=== PATIENT | female | born 1935 | race Caucasian/White ===

== ENCOUNTER 2022-12-04 18:44 | Inpatient (IN) | payer OTHER, MEDICAID ==
[~2022-12-04] VITALS: Ht 154.9 cm; Wt 56.7 kg
[2022-12-04 18:44] VITALS: BP 167/85
--- NOTE | 2022-12-04 18:50 | NUR ---
PATIENT BIBA TO BED 7.
--- NOTE | 2022-12-04 19:00 | NUR ---
PT RECEIVED, CARE ASSUMED. PT BIB FOR EVALUATION OF FEVER. CONNECTED TO TELE MONITOR. AWAITING TO BE SEEN BY
[2022-12-04 19:27] LABS: BASOPHILS % (AUTO) 0.1 % (0.0-2.0); EOSINOPHILS # (AUTO) 0.1 K/uL (0-0.4); EOSINOPHILS % (AUTO) 0.7 % (0.0-4.0); HEMATOCRIT 35.1 % (36-48); HEMOGLOBIN 11.9 g/dL (12.0-16.0); MEAN CORPUSCULAR HEMOGLOBIN 32 pg (27-31); MEAN CORPUSCULAR HGB CONC 34 g/dL (33-37); MEAN CORPUSCULAR VOLUME 95.9 fL (80-94); MONOCYTES # (AUTO) 0.7 K/uL (0.8-1.0); MONOCYTES % (AUTO) 8.2 % (1.7-9.3); PLATELET COUNT (AUTO) 240 K/uL (140-450); RED BLOOD CELL COUNT(AUTO) 3.66 MIL/uL (4.20-5.40); RED CELL DISTRIBUTION WIDTH 13.2 % (11.6-13.7); WHITE BLOOD COUNT (AUTO) 8.7 K/uL (4.8-10.8)
--- NOTE | 2022-12-04 19:35 | NUR ---
XRRAY AT BEDSIDE
--- NOTE | 2022-12-04 19:36 | NUR ---
PT WALKED TO BATHROOM WITH ASSIST. GAIT UNSTEADY. LEFT SIDED WEAKNESS. URINE OBTAINED AND SENT TO LAB
[2022-12-04 19:39] LABS: APPEARANCE,URINE CLEAR (CLEAR); BILIRUBIN,URINE NEGATIVE (NEGATIVE); BLOOD, URINE 1+ (NEGATIVE); COLOR,URINE YELLOW (YELLOW); LEUKOCYTE ESTERASE ,URINE NEGATIVE (NEGATIVE); NITRITE, URINE NEGATIVE (NEGATIVE); UGLUCOSE NEGATIVE (NEGATIVE)
--- NOTE | 2022-12-04 19:41 | NUR ---
COVID AND FLU SWAB COLLECTED AND SENT TO LAB
[2022-12-04 19:56] LABS: ALBUMIN 3.8 g/dL (3.4-5.0); ANION GAP 10.8 (8-16); ASPARTATE AMINOTRANSFERASE 36 U/L (15-37); CARBON DIOXIDE 27.8 mmol/L (21-32); CHLORIDE 98 mmol/L (98-107); GLUCOSE 156 mg/dL (74-106); POTASSIUM 3.6 mmol/L (3.5-5.1); SODIUM SERUM 133 mmol/L (136-145); THYROID STIMULATING HORMONE 0.96 uIU/mL (0.34-3.74); TOTAL BILIRUBIN 0.9 mg/dL (0.0-1.0); UREA NITROGEN, BLOOD 27 mg/dL (7-18)
--- NOTE | 2022-12-04 20:00 | NUR ---
86 Y/O F PRESENTS WITH A FEVER AND L SIDED WEAKNESS. PT GAIT IS UNSTEADY, SKIN INTACT, A&OX4. PT IS WARM TO TOUCH. PMH-UNKNOWN NKA
[2022-12-04 20:08] LABS: OTHER CASTS, URINE None Seen /LPF (None Seen); WBC,URINE 0-5 /HPF (0-5)
--- NOTE | 2022-12-04 20:55 | NUR ---
DR. NIÑO AT BEDSIDE
--- NOTE | 2022-12-04 21:57 | NUR ---
BELONGINGS LIST DONE.
--- NOTE | 2022-12-04 21:58 | NUR ---
OMARI NUNEZ USED TO COMMUNICATE WITH PT.
--- NOTE | 2022-12-04 21:58 | NUR ---
PENDING ADMISSION ORDERS FOR TELE. PT IS AWARE AND UNDERSTANDS
[2022-12-04] MEDS ORDERED: MELATONIN 3 MG TAB PO STA (22:03)
[2022-12-04] MEDS ORDERED: HYDR12.51 PO (22:08)
--- NOTE | 2022-12-04 22:14 | NUR ---
GLADYS BE AND REGINALD PACK
[2022-12-04] MEDS ORDERED: guaiFENesin DM 200/20 MG-10 ML 10 ML UDC PO PRN (22:50)
[2022-12-04] MEDS ORDERED: ACETAMINOPHEN 325 MG TAB PO PRN (22:50)
[2022-12-04] MEDS ORDERED: DOCUSATE SODIUM 100 MG GELCAP PO PRN (22:50)
[2022-12-04] MEDS ORDERED: NACL 0.9% 1,000 ML IV SCH (22:50)
[2022-12-04] MEDS ORDERED: ONDANSETRON 4 MG/2 ML VIAL IM/IVP PRN (22:50)
[2022-12-04] MEDS ORDERED: HYDROcodone/APAP 7.5/325 MG 1 TAB PO PRN (22:50)
[2022-12-04] MEDS: FUROSEMIDE 20 MG/2 ML VIAL IVP SCH (23:15)
--- NOTE | 2022-12-04 23:15 | NUR ---
20G IV CATH PLACED IN R AC
[2022-12-04 23:38] LABS: PROTHROMBIN TIME 10.7 secs (10.8-13.4)
--- NOTE | 2022-12-04 23:43 | NUR ---
PT ALSEEP ON BEDSIDE RN ACCESS. RESP EVEN AND UNLABORED. [place] SPEAKING ONLY. BED AT LOWEST POSITION SIDE RAILS UPX2
[2022-12-04 23:54] LABS: CHOL/HDL RATIO 3.9 (1-4.5); FREE T4 (FREE THYROXINE) 1.53 ng/dL (0.76-1.46); PHOSPHORUS 3.6 mg/dL (2.5-4.9); THYROID STIMULATING HORMONE 1.18 uIU/mL (0.34-3.74)
--- NOTE | 2022-12-05 01:24 | NUR ---
PUREWIX IN PLACE ON PT.
--- NOTE | 2022-12-05 03:39 | NUR ---
PT RESTING, ON REGULATORY SPECIALIST RESPIRATIONS EVEN AND UNLABORED.
[2022-12-05 06:47] LABS: BASOPHILS % (AUTO) 0.6 % (0.0-2.0); EOSINOPHILS # (AUTO) 0.1 K/uL (0-0.4); EOSINOPHILS % (AUTO) 1.3 % (0.0-4.0); HEMATOCRIT 33.8 % (36-48); HEMOGLOBIN 11.3 g/dL (12.0-16.0); LYMPHOCYTES # (AUTO) 1.4 K/uL (2.5-16.5); LYMPHOCYTES % (AUTO) 18.4 % (20.5-51.1); MEAN CORPUSCULAR HEMOGLOBIN 32 pg (27-31); MEAN CORPUSCULAR HGB CONC 34 g/dL (33-37); MEAN CORPUSCULAR VOLUME 94.9 fL (80-94); MONOCYTES # (AUTO) 1.1 K/uL (0.8-1.0); MONOCYTES % (AUTO) 13.9 % (1.7-9.3); NEUTROPHILS % (AUTO) 65.8 % (42.2-75.2); PLATELET COUNT (AUTO) 244 K/uL (140-450); RED BLOOD CELL COUNT(AUTO) 3.56 MIL/uL (4.20-5.40); WHITE BLOOD COUNT (AUTO) 7.6 K/uL (4.8-10.8)
[2022-12-05 07:04] LABS: ANION GAP 11.1 (8-16); CARBON DIOXIDE 28.1 mmol/L (21-32); CHLORIDE 102 mmol/L (98-107); CREATININE 0.9 mg/dL (0.6-1.3); GLUCOSE 118 mg/dL (74-106); POTASSIUM 3.2 mmol/L (3.5-5.1); SODIUM SERUM 138 mmol/L (136-145); UREA NITROGEN, BLOOD 23 mg/dL (7-18)
--- NOTE | 2022-12-05 07:30 | NUR ---
REPORT RECEIVED FROM LUCI LOUIE. ASSUMED CARE AT THIS TIME
--- NOTE | 2022-12-05 08:33 | NUR ---
Patient will be admitted to care of MD MENDEZ. Admited to TELE. Will go to room 121B. Belongings list completed. Report to WILLIE LOUIE.
[2022-12-05 08:45] VITALS: BP 137/67
--- NOTE | 2022-12-05 08:45 | NUR ---
RECEIVED PT FROM CERAMIC DESIGN ENGINEERCHRIS, PT IS AWAKE, ALERT AND ORIENTED, PT IS ON ROOM AIR, IV LINE NOTED ON THE RIGHT AC G. 20 ON SALINE LOCK, PT IS MANDARIN SPEAKING, PT DENIES CHEST PAIN, NO SIGN OF DISTRESS NOTED AND WILL CONTINUE TO MONITOR PT.
[2022-12-05] MEDS: lisinopriL 20 MG TAB PO SCH (09:14)
[2022-12-05] MEDS: METOPROLOL 25 MG TAB PO SCH ×2 (09:14→20:19)
[2022-12-05] MEDS: FUROSEMIDE 20 MG/2 ML VIAL IVP SCH ×2 (09:14→20:18)
--- NOTE | 2022-12-05 09:14 | NUR ---
PT WAS GIVEN THE SCHEDULED AM MEDICATIONS NOW, PARAMETERS CHECKED, NO SIGN OF DISTRESS NOTED.
[2022-12-05] MEDS: hydroCHLOROthiazide 25 MG TAB PO SCH (09:15)
[2022-12-05] MEDS: PANTOPRAZOLE 40 MG TABEC PO SCH (09:16)
--- NOTE | 2022-12-05 10:30 | NUR ---
PT WAS ASSISTED TO USE THE BATHROOM
[2022-12-05 12:00] VITALS: BP 127/60
[2022-12-05 16:00] VITALS: BP 107/64
[2022-12-05] MEDS: ATORVASTATIN 20 MG TAB PO SCH (17:54)
[2022-12-05] MEDS: POTASSIUM CHLORIDE 10 MEQ TABER PO PRN (18:41)
--- NOTE | 2022-12-05 19:30 | NUR ---
ENDORSED PT TO NIGHT RN FOR CONTINUITY OF CARE, PT IS STABLE AT THIS TIME.
--- NOTE | 2022-12-05 19:31 | NUR ---
RECEIVED REPORT FROM MORNING SHIFT NURSE. PT IS AOX4, MANDARIN SPEAKING, AMBULATORY WITH ASSIST, ABLE TO VERBALIZE NEEDS AND ABLE TO FOLLOW COMMANDS. PT IS ON ROOM AIR AND ON REGULAR DIET. PT HAS IV ON RIGHT AC GAUGE 20, SALINE LOCK. PT SKIN IS INTACT. PT DENIES PAIN AT THIS TIME. NO S/S OF RESPIRATORY DISTRESS NOTED. ALL SAFETY MEASURES IMPLEMENTED. BED IN LOW POSITION, BED WHEELS ON LOCK AND CALL LIGHT WITHIN REACH.
[2022-12-05 20:00] VITALS: BP 111/57
[2022-12-05] MEDS: ZOLPIDEM 5 MG TAB PO PRN (20:19)
--- NOTE | 2022-12-05 20:19 | NUR ---
ALL SCHEDULED AND PRESCRIBED MEDICATION WAS GIVEN TO PT PER MD ORDER. AMBIEN WAS ALSO GIVEN PER PT REQUEST. ALL SAFETY MEASURES IMPLEMENTED. BED IN LOW POSITION, BED WHEELS ON LOCK AND CALL LIGHT WITHIN REACH
--- NOTE | 2022-12-05 22:00 | NUR ---
PT WAS ASSISTED TO BATHROOM. PT DENIES PAIN AND NO S/S OF RESPIRATORY DISTRESS NOTED. ALL SAFETY MEASURES IMPLEMENTED. BED IN LOW POSITION, BED WHEELS ON LOCK AND CALL LIGHT WITHIN REACH
[2022-12-06] VITALS: BP 107/65
--- NOTE | 2022-12-06 | NUR ---
PT IS SLEPPING. CHEST RISE AND FALL SYMMETRICALLY NOTED. RESPIRATION IS EVEN AND UNLABORED. ALL SAFETY MEASURES IMPLEMENTED. BED IN LOW POSITION, BED WHEELS ON LOCK AND CALL LIGHT WITHIN REACH
--- NOTE | 2022-12-06 02:00 | NUR ---
CHECKED PT STILL SLEEPING. CHEST RISE AND FALL SYMMETRICALLY NOTED. RESPIRATION IS EVEN AND UNLABORED. ALL SAFETY MEASURES IMPLEMENTED. BED IN LOW POSITION, BED WHEELS ON LOCK AND CALL LIGHT WITHIN REACH.
[2022-12-06 04:00] VITALS: BP 121/54
--- NOTE | 2022-12-06 04:00 | NUR ---
PT WAS GIVEN WARM BLABKET. NO COMPLAIN OF PAIN. NO S/S OF RESPIRATORY DISTRESS NOTED. ALL SAFETY MEASURES IMPLEMENTED. BED IN LOW POSITION, BED WHEELS ON LOCK AND CALL LIGHT WITHIN REACH
[2022-12-06 06:42] LABS: BASOPHILS % (AUTO) 0.7 % (0.0-2.0); EOSINOPHILS # (AUTO) 0.2 K/uL (0-0.4); HEMATOCRIT 35.7 % (36-48); LYMPHOCYTES # (AUTO) 1.5 K/uL (2.5-16.5); LYMPHOCYTES % (AUTO) 23.2 % (20.5-51.1); MEAN CORPUSCULAR HEMOGLOBIN 32 pg (27-31); MEAN CORPUSCULAR HGB CONC 34 g/dL (33-37); MEAN CORPUSCULAR VOLUME 95.1 fL (80-94); MONOCYTES # (AUTO) 0.8 K/uL (0.8-1.0); MONOCYTES % (AUTO) 12.2 % (1.7-9.3); NEUTROPHILS % (AUTO) 60.9 % (42.2-75.2); PLATELET COUNT (AUTO) 280 K/uL (140-450); RED BLOOD CELL COUNT(AUTO) 3.75 MIL/uL (4.20-5.40); RED CELL DISTRIBUTION WIDTH 13.3 % (11.6-13.7); WHITE BLOOD COUNT (AUTO) 6.6 K/uL (4.8-10.8)
--- NOTE | 2022-12-06 07:21 | NUR ---
PT IS STABLE. NO ACUTE EVENTS THROUGHOUT THE NIGHT.NO S/SX OF DISTRESS AT THIS MOMENT.ALL NEEDS ATTENDED. ALL PRECAUTIONS IN PLACE. CALL LIGHT WITHIN REACH. ENDORSED TO DAY RN.
--- NOTE | 2022-12-06 07:22 | NUR ---
got report from the night nurse, pt awake discussed [email or web address]
[2022-12-06 07:43] LABS: CARBON DIOXIDE 27.8 mmol/L (21-32); CHLORIDE 102 mmol/L (98-107); CREATININE 1.2 mg/dL (0.6-1.3); GLUCOSE 116 mg/dL (74-106); POTASSIUM 3.8 mmol/L (3.5-5.1); SODIUM SERUM 141 mmol/L (136-145); UREA NITROGEN, BLOOD 37 mg/dL (7-18)
[2022-12-06 08:00] VITALS: BP 115/56
[2022-12-06 08:07] LABS: T4 (THYROXINE) 9.8 ug/dL (4.5-12.0)
[2022-12-06] MEDS: FUROSEMIDE 20 MG/2 ML VIAL IVP SCH ×2 (08:08→21:35)
[2022-12-06] MEDS: METOPROLOL 25 MG TAB PO SCH ×2 (08:10→21:36)
[2022-12-06] MEDS: lisinopriL 20 MG TAB PO SCH (08:10)
[2022-12-06] MEDS: PANTOPRAZOLE 40 MG TABEC PO SCH (08:11)
[2022-12-06] MEDS: hydroCHLOROthiazide 25 MG TAB PO SCH (08:17)
--- NOTE | 2022-12-06 09:06 | NUR ---
PATIENT HAS BEEN SCREENED AND CATEGORIZED LOW NUTRITION RISK. PATIENT WILL BE SEEN WITHIN 7 DAYS OF ADMISSION. 12/04/22-12/11/[address]
[2022-12-06 12:00] VITALS: BP 123/46
[2022-12-06 16:00] VITALS: BP 134/53
[2022-12-06] MEDS: ATORVASTATIN 20 MG TAB PO SCH (16:50)
[2022-12-06 21:00] VITALS: BP 132/82
[2022-12-06] MEDS: ZOLPIDEM 5 MG TAB PO PRN (21:41)
[2022-12-07 00:08] VITALS: BP 131/71
--- NOTE | 2022-12-07 02:20 | NUR ---
PATIENT STABLE VITALS SIGNS IN NORMAL LIMITS SLEEPING AT THIS TIME SR 83 ON MONITOR
[2022-12-07 03:53] VITALS: BP 130/72
[2022-12-07 06:01] LABS: BASOPHILS % (AUTO) 0.4 % (0.0-2.0); EOSINOPHILS # (AUTO) 0.3 K/uL (0-0.4); EOSINOPHILS % (AUTO) 4.2 % (0.0-4.0); HEMOGLOBIN 11.8 g/dL (12.0-16.0); LYMPHOCYTES # (AUTO) 1.8 K/uL (2.5-16.5); MEAN CORPUSCULAR HEMOGLOBIN 32 pg (27-31); MEAN CORPUSCULAR HGB CONC 34 g/dL (33-37); MEAN CORPUSCULAR VOLUME 94.8 fL (80-94); MONOCYTES # (AUTO) 0.7 K/uL (0.8-1.0); MONOCYTES % (AUTO) 9.4 % (1.7-9.3); NEUTROPHILS # (AUTO) 4.2 K/uL (1.8-7.7); PLATELET COUNT (AUTO) 309 K/uL (140-450)
[2022-12-07 06:22] LABS: CARBON DIOXIDE 31.4 mmol/L (21-32); CHLORIDE 99 mmol/L (98-107); CREATININE 1.1 mg/dL (0.6-1.3); GLUCOSE 114 mg/dL (74-106); POTASSIUM 3.4 mmol/L (3.5-5.1); SODIUM SERUM 141 mmol/L (136-145); UREA NITROGEN, BLOOD 40 mg/dL (7-18)
--- NOTE | 2022-12-07 06:55 | NUR ---
PATIENT STABLE VITALS SIGNS IN NORMAL LIMITS NOT COMPLAINING OF PAIN
[2022-12-07] MEDS: PANTOPRAZOLE 40 MG TABEC PO SCH (09:37)
[2022-12-07] MEDS: hydroCHLOROthiazide 25 MG TAB PO SCH (09:37)
[2022-12-07] MEDS: lisinopriL 20 MG TAB PO SCH (09:38)
[2022-12-07] MEDS: FUROSEMIDE 20 MG/2 ML VIAL IVP SCH (09:38)
[2022-12-07] MEDS: METOPROLOL 25 MG TAB PO SCH (09:38)
[2022-12-07] MEDS: POTASSIUM CHLORIDE 10 MEQ TABER PO PRN (13:07)
[2022-12-07] MEDS ORDERED: LISI20TA29 PO (14:52)
[2022-12-07] MEDS ORDERED: ATOR20TA40 PO (14:52)
[2022-12-07] MEDS ORDERED: Potassium Chloride PO (14:52)
[2022-12-07] MEDS ORDERED: METO25TA PO (14:52)
[2022-12-07] MEDS ORDERED: PANT40EC56 PO (14:52)
[2022-12-08] MEDS ORDERED: ECOTRIN 81 MG TABEC PO SCH (09:00)
== END 2022-12-07 18:00 | disposition home or self-care (01) | DRG 291 ==
LOC: MED 18:44 → MTU 21:49
PROVIDERS: ADMIT Family Medicine; ATTEND Family Medicine
DX: I11.0 Hypertensive heart disease with heart failure (principal); G93.41 Metabolic encephalopathy; I50.43 Acute on chronic combined systolic (congestive) and diastolic (congestive) heart failure; E87.1 Hypo-osmolality and hyponatremia; I69.354 Hemiplegia and hemiparesis following cerebral infarction affecting left non-dominant side; R07.9 Chest pain, unspecified; D63.8 Anemia in other chronic diseases classified elsewhere; E87.6 Hypokalemia; E78.5 Hyperlipidemia, unspecified; Z20.822 Contact with and (suspected) exposure to COVID-19; Z86.79 Personal history of other diseases of the circulatory system; Z90.49 Acquired absence of other specified parts of digestive tract
CPT/HCPCS: 36415; 71045; 80048; 80053; 81001; 82150; 83036; 83605; 83690; 83735; 83880; 84100; 84436; 84439; 84443; 84479; 84484; 85025; 85610; 85730; 87040; 87081; 99285; J1940; Q0092